=== PATIENT | male | born 1950 | race African-American/Black ===

== ENCOUNTER → 2021-11-10 | Outpatient (CLI) | payer BC ==
--- NOTE | 2021-11-10 12:57 | Diagnostic Imaging Report ---
PROCEDURE: CT abdomen and pelvis without contrast. TECHNIQUE: Multiple contiguous axial images were obtained through the abdomen and pelvis without the use of intravenous contrast. Auto Exposure Controls were utilized during the CT exam to meet ALARA standards for radiation dose reduction. INDICATION: Unexplained weight loss. FINDINGS: Unenhanced images of liver, gallbladder, pancreas and spleen are unremarkable in appearance. There is no evidence of adrenal gland lesion. Kidneys are unremarkable apart from an approximately 1 cm exophytic nodule along the inferior margin of the left kidney. This could represent renal cyst. There is no obstructive uropathy. No free fluid is seen within the abdomen or pelvis. There is mild aortoiliac atherosclerotic calcification. No pathologically enlarged adenopathy is seen. Unenhanced urinary bladder is unremarkable although there is indentation on the bladder base from enlarged prostate gland. No bowel obstruction is appreciated. There is lumbar spondylosis with degenerative disc disease most pronounced at the L3-L4 and L4-L5 levels. IMPRESSION: 1. 1 cm nodular focus along the inferior margin of the left kidney which is nonspecific on the noncontrasted study. Ultrasound may be of use to determine cystic or solid nature. 2. No evidence of acute abnormality or mass lesion. 3. No pathologic adenopathy abnormal 3rd spacing of fluid is appreciated. Dictated by: Dictated on workstation # [id number]
== END ==
LOC: RAD 12:15
PROVIDERS: ATTEND Family Medicine
DX: R63.4 Abnormal weight loss (principal)
CPT/HCPCS: 74176